=== PATIENT | female | born 1995 | race Caucasian/White ===

== ENCOUNTER 2020-07-14 11:02 | Emergency (ER) | payer BC, SELFPAY ==
--- NOTE | ~2020-07-14 | US_ITS ---
US pelvic complete DATE: 07/14/2020 11:52 INDICATION: Vaginal bleeding; vaginal delivery 10 days ago. TECHNIQUE: Real-time imaging via transabdominal approach COMPARISON: None FINDINGS: Uterus measures 10.6 cm height, 7.5 cm anteroposterior and 5.1 cm transverse dimension. The endometrial echo complex measures up to 2.9 cm anteroposterior dimension, suggesting retained pro ducts of conception. No pelvic mass or abnormal pelvic fluid collection is evident. IMPRESSION: Prominent central endometrial echo, measuring up to 2.9 cm AP dimension, suggesting retai dwayne products of conception Reviewed, dictated and finalized at [facility]. Reviewed, dictated and finalized at [facility]. IMPRESSION: Prominent central endometrial echo, measuring up to 2.9 cm AP dimen teja, suggesting retained products of conception
[2020-07-14 11:14] VITALS: BP 128/68; PULSE 104; RESP 20; TEMP 36.3; O2SAT 97
--- NOTE | 2020-07-14 11:29 | ED.GENADULT ---
HPI - General Adult General Chief complaint: Vaginal Bleeding Stated complaint: vag bleed Time Seen by Provider: 07/14/20 11:14 Source: patient Mode of arrival: ambulatory Limitations: no limitations History of Present Illness HPI narrative: Pt presents for evaluation of vaginal bleeding that started around 1015 this morning. She states she had a vaginal delivery at [facility] ten days ago. Bleeding after delivery decreased about 3 days . Since that time she has noted some spotting. This morning she had in the shower and noticed she was bleeding vaginally. She had no abdominal pain, nausea, vomiting. She denies urinary symptoms, vaginal discharge. At that time she felt dizzy and lightheaded. Those symptoms have resolved however she does feel weak. She states she is currently wearing her child's diaper and that it is not heavily saturated. She contacted her inpatient coder who advised she come to the hospital for further evaluation. It sounds as though she had some labial tearing during delivery which was repaired with sutures. She does not feel like any of the sutures have been disrupted. Related Data Home Medications Medication Instructions Recorded Confirmed No Home Medications 07/14/20 07/14/20 Allergies Allergy/AdvReac Type Severity Reaction Status Date / Time No Known Allergies Allergy Verified 07/14/20 11:18 Review of Systems Review of Systems: Narrative: CONSTITUTIONAL: Denies fever, chills, or sweats. EYES: Denies visual changes, redness, or discharge. ENT: Denies rhinorrhea, congestion, sore throat, or otalgia. CARDIOVASCULAR: Denies chest pain, palpitations, or edema. RESPIRATORY: Denies cough or dyspnea. GASTROINTESTINAL: Denies abdominal pain, nausea, vomiting, or diarrhea. GENITOURINARY: Reports vaginal bleeding. Denies dysuria, hematuria, urinary frequency and vaginal discharge. SKIN: Denies rash or itching. MUSCULOSKELETAL: Denies back pain, joint pain, or myalgia. NEUROLOGIC: Denies headache, numbness, dizziness, or weakness. PSYCHIATRIC: Denies anxiety or depression. [facility] Past Medical History Medical History (Updated 07/14/20 @ 14:10 by Lan Ingram, ZOILA, ELIZABETH) No pertinent past medical history Surgical History Surgical History No pertinent past surgical history Family History Family History Mother Hypertension Father Hypertension Social History Social History Smoking status: Never smoker Alcohol intake: never Substance use: never Living arrangements: with family Gender identity (if verbalized by the patient): Female Sexual Orientation (if Verbalized by the Patient): Straight or Heterosexual Spiritual care concerns: No Exam Narrative: Exam Narrative: GENERAL: Well-appearing, well-nourished, and in no acute distress. HEAD: Normocephalic, atraumatic. EYES: PERRLA and EOMI. ENT: Nares clear, no rhinorrhea or epistaxis. Mucous membranes moist. Oropharynx without tonsillar hypertrophy exudate or other lesions. Bilateral TMs pearly yip nonbulging NECK: Supple. No adenopathy or masses. No carotid bruits or JVD CHEST: Clear to auscultation. No respiratory distress. No wheezes rales or rhonchi HEART: Regular rate and rhythm. No murmur heard. Normal peripheral pulses. ABDOMEN: Soft, nontender, nondistended, normal active bowel sounds. EXTREMITIES: Normal range of motion. No edema. SKIN: Warm, dry, no rash. NEURO: No focal deficits. Alert and oriented x3. PSYCH: Normal mood and affect. Course Course Emergency Course: This is a 24-year-old female presented to emergency department 10 days post vaginal delivery at [facility] with reports of increased vaginal bleeding that started this morning. Her quant hcg resulted at 58.42. U/S suggestive of retained products of conception.
[2020-07-14] MEDS: SODIUM CHLORIDE 0.9% IV 1,000 ML 999 ML IV CONT (12:09)
[2020-07-14 12:13] LABS: Basophils Absolute Auto 0.1 K/mm3 (0.0-0.1); Basophils Percent Auto 0.4 % (0.2-1.2); Eosinophils Absolute Auto 0.1 K/mm3 (0-0.3); Eosinophils Percent Auto 0.6 % (0-4.4); Hematocrit 40.9 % (37.0-47.0); Hemoglobin 13.6 g/dL (12.0-15.0); Immature Granulocyte Absolute 0.13 K/mm3 (0.00-0.031); Immature Granulocyte Percent A 1.1 % (0-0.5); Lymphocytes Absolute Auto 0.96 K/mm3 (0.9-3.2); Lymphocytes Percent Auto 8.2 % (18.3-44.2); Mean Corpuscular HGB Conc 33.3 g/dl (32-36); Mean Corpuscular Hemoglobin 32.2 pg (26-34); Mean Corpuscular Volume 96.9 fl (80-100); Mean Platelet Volume 9.5 fl (7.4-10.4); Monocytes Absolute Auto 0.6 K/mm3 (0.1-0.6); Monocytes Percent Auto 5.5 % (2.6-8.5); Neutrophils Absolute Auto 9.9 K/mm3 (1.3-6.7); Neutrophils Percent Auto 84.2 % (45.5-73.1); Platelet Count Result 242 k/mm3 (150-375); Red Blood Count 4.22 M/mm3 (4.2-5.4); Red Cell Distribution Width 12.2 % (11.5-14.5); White Blood Count 11.7 K/mm3 (4.5-10.0)
[2020-07-14 12:22] LABS: Alanine Aminotransferase 24 U/L (4-35); Albumin Level 4.2 g/dL (3.5-5.1); Alkaline Phosphatase 109 U/L (38-126); Anion Gap 6 mmol/L (8-16); Aspartate Amino Transferase 30 U/L (14-36); Bilirubin,Total 0.5 mg/dL (0.2-1.3); Blood Urea Nitrogen 14 mg/dL (7-17); Calcium 9.7 mg/dL (8.4-10.2); Carbon Dioxide 30 mmol/L (22-30); Chloride 104 mmol/L (98-107); Estimated CRCL calculation 111 ml/min; Estimated Glomerular Filt Rate > 60; Glucose 92 mg/dL (65-105); Lipase 40 U/L (23-300); Sodium 140 mmol/L (137-145)
[2020-07-14 12:24] LABS: INR 0.9; Partial Thromboplastin Time 27.7 SECONDS (22.3-36.8); Prothrombin Time 12.8 Seconds (11.1-14.7)
[2020-07-14 12:38] LABS: Beta HCG Quantitative 58.42 mIU/ML
[2020-07-14 13:41] VITALS: BP 99/65; PULSE 102; RESP 18; TEMP 36.2; O2SAT 99
[2020-07-14 13:56] LABS: Add Urine Microscopic? YES; Appearance Urine Cloudy (Clear); Bacteria Urine Trace /hpf; Bilirubin Urine Negative (Negative); Blood Urine 3+ (Negative); Color Urine Yellow (Yellow); Glucose Urine UA Negative (Negative); Ketones Urine Negative (Negative); Leukocyte Esterase Ur Trace LEU/UL (Negative); Mucus Urine Rare /lpf; Nitrate Urine Negative (Negative); Protein Urine 1+ mg/dL (Negative); RBC Urine >75 /hpf (0-2); Specific Grav Ur 1.009 (1.001-1.035); Squamous Epithelial Cell Urine Rare /hpf (Few); Urobilinogen Urine Negative mg/dL (<2.0); WBC Urine 31-50 /hpf
--- NOTE | 2020-07-14 14:02 | PC.NURSE ---
Patient and family aware that the ED Provider is working on contacting [facility] for consult at this time.
[2020-07-14 14:21] VITALS: BP 101/70; PULSE 101; RESP 18; TEMP 36.8; O2SAT 99
== END 2020-07-14 14:24 | disposition home or self-care (01) ==
PROVIDERS: Emergency Provider Nurse Practitioner; PCP Family Medicine
DX: O72.2 Delayed and secondary postpartum hemorrhage (principal)
CPT/HCPCS: 36415; 76856; 80053; 81001; 83690; 84702; 85025; 85610; 85730; 87086; 96360; 99284; J7030